=== PATIENT | male | born 1935 | race Caucasian/White ===

== ENCOUNTER 2019-09-21 12:27 | Emergency (ER) | payer BC, MEDICARE ==
[~2019-09-21] VITALS: Ht 180.3 cm; Wt 68.0 kg
[2019-09-21 13:15] VITALS: BP 114/70
[2019-09-21] MEDS ORDERED: BACITRACIN TOP OINT 1 UD PKG TOP ONE (15:30)
== END 2019-09-21 15:42 | disposition home or self-care (01) ==
LOC: EDBD 12:27 → ER 12:38
DX: S01.91XA Laceration without foreign body of unspecified part of head, initial encounter (principal); W07.XXXA Fall from chair, initial encounter; Y93.89 Activity, other specified; Y92.511 Restaurant or cafe as the place of occurrence of the external cause; Y99.8 Other external cause status
CPT/HCPCS: 12002; 70450; 93005